=== PATIENT | female | born 1950 | race Caucasian/White ===

== ENCOUNTER 2019-05-31 02:03 | Inpatient (IN) | payer OTHER ==
[~2019-05-31] VITALS: Ht 154.9 cm; Wt 82.2 kg
[2019-05-31 02:08] VITALS: Ht 154.9 cm; Wt 82.2 kg
[2019-05-31 04:38] LABS: BASOPHIL % 0.7 % (0-2); PLATELET COUNT 169 x10^3mcL (130-400); RED CELL DISTRIBUTION WIDTH 13.6 % (11.5-14.5)
[2019-05-31 04:57] LABS: CALCIUM 8.5 mg/dL (8.5-10.1); CARBON DIOXIDE 25.7 mmol/L (21-32); CREATININE SERUM 1.4 mg/dL (0.6-1.0); POTASSIUM SERUM 4.8 mmol/L (3.5-5.1)
[2019-05-31 05:01] LABS: BILIRUBIN TOTAL 0.35 mg/dL (0.20-1.00); TOTAL PROTEIN, SERUM 6.6 g/dL (6.4-8.2)
[2019-05-31 05:02] LABS: ALBUMIN 2.8 g/dL (3.4-5.0)
[2019-05-31] MEDS ORDERED: ATENOLOL50 MG PO (06:10)
[2019-05-31] MEDS ORDERED: NAPROXEN500 MG PO (06:11)
[2019-05-31] MEDS ORDERED: COZAAR25 M1 PO (06:11)
[2019-05-31] MEDS ORDERED: MAGNESIUM CHLOR64 MG PO (06:11)
[2019-05-31] MEDS ORDERED: AMBIEN10 MG PO (06:12)
[2019-05-31] MEDS ORDERED: NEXIUM20 MG PO (06:12)
[2019-05-31] MEDS ORDERED: HUMALOG100 U/ML SC (06:12)
[2019-05-31] MEDS ORDERED: NEU300 PO (06:12)
[2019-05-31] MEDS ORDERED: METFORMIN HCL1000 MG PO (06:12)
[2019-05-31] MEDS ORDERED: ALPHAGAN P5 M1 OU (06:13)
[2019-05-31] MEDS ORDERED: LANTUS SOLOS100 U/M1 SQ (06:13)
[2019-05-31] MEDS ORDERED: BETIMOL5 M1 OU (06:13)
[2019-05-31] MEDS ORDERED: LATANOPROST2.5 ML OU (06:14)
[2019-05-31 09:03] VITALS: BP 201/71
[2019-05-31 09:56] VITALS: BP 201/71
[2019-05-31 11:17] LABS: IRON 36 ug/dL (50-170); TOTAL IRON BINDING CAPACITY 229 ug/dL (250-450)
[2019-05-31 12:27] VITALS: BP 157/53
[2019-05-31 12:28] LABS: RED BLOOD CELLS 3.03 M/mm3 (4.10-5.10)
[2019-05-31 17:06] VITALS: BP 174/62
[2019-05-31 18:41] LABS: microscopic required? YES; urine erythrocyte 1+ (NEGATIVE)
[2019-05-31 19:48] VITALS: BP 127/55
[2019-05-31 21:50] VITALS: BP 127/45
[2019-06-01 06:06] VITALS: BP 146/51
[2019-06-01 07:10] LABS: PLATELET COUNT 163 x10^3mcL (130-400)
[2019-06-01 07:50] LABS: CALCIUM 8.3 mg/dL (8.5-10.1); CARBON DIOXIDE 26.2 mmol/L (21-32); CREATININE SERUM 1.3 mg/dL (0.6-1.0); POTASSIUM SERUM 4.4 mmol/L (3.5-5.1)
[2019-06-01 08:53] VITALS: BP 154/53
[2019-06-01 16:48] VITALS: BP 152/47
[2019-06-01 20:12] VITALS: BP 151/52
[2019-06-01 22:07] VITALS: BP 156/60
[2019-06-02 05:57] VITALS: BP 147/54
[2019-06-02 06:35] LABS: BASOPHIL % 0.5 % (0-2); PLATELET COUNT 174 x10^3mcL (130-400); RED CELL DISTRIBUTION WIDTH 14.4 % (11.5-14.5)
[2019-06-02 06:50] LABS: CALCIUM 8.4 mg/dL (8.5-10.1); CREATININE SERUM 1.3 mg/dL (0.6-1.0); POTASSIUM SERUM 5.1 mmol/L (3.5-5.1)
[2019-06-02 11:14] VITALS: BP 152/45
[2019-06-02 12:15] VITALS: BP 152/63
[2019-06-02 17:06] VITALS: BP 133/75; BP 185/56
[2019-06-02 18:22] VITALS: BP 150/64
[2019-06-02 19:40] VITALS: BP 154/58
[2019-06-03 05:12] VITALS: BP 164/48
[2019-06-03 09:27] VITALS: BP 190/59
[2019-06-03 10:45] VITALS: BP 190/59
[2019-06-03 12:57] VITALS: BP 173/62
[2019-06-03 15:02] VITALS: BP 155/56
== END 2019-06-03 16:07 | disposition home health service (06) | DRG 193 ==
LOC: ED 02:03 → DU 06:58
PROVIDERS: Emergency Medicine; ADMIT Internal Medicine
DX: J10.00 Influenza due to other identified influenza virus with unspecified type of pneumonia (principal); J96.01 Acute respiratory failure with hypoxia; K56.7 Ileus, unspecified; N17.9 Acute kidney failure, unspecified; I10 Essential (primary) hypertension; D64.9 Anemia, unspecified; E11.9 Type 2 diabetes mellitus without complications; E66.9 Obesity, unspecified; Z68.32 Body mass index [BMI] 32.0-32.9, adult; Z79.4 Long term (current) use of insulin
CPT/HCPCS: 82962; 83880; 87046; 87046-59; 87804; 97116-GP; G0378; J0456; J0696; J1956; J3490; J7030; J7040; J7050; J7060; J7620

== ENCOUNTER 2019-08-18 14:49 | Inpatient (IN) | payer OTHER ==
[~2019-08-18] VITALS: Ht 152.4 cm; Wt 80.3 kg
[~2019-08-18 14:49] MED LIST: ALPHAGAN P5 M1 OU; AMBIEN10 MG PO; ATENOLOL50 MG PO; BETIMOL5 M1 OU; COZAAR25 M1 PO; HUMALOG100 U/ML SC; LANTUS SOLOS100 U/M1 SQ; LATANOPROST2.5 ML OU; MAGNESIUM CHLOR64 MG PO; METFORMIN HCL1000 MG PO; NAPROXEN500 MG PO; NEU300 PO; NEXIUM20 MG PO
[2019-08-18 14:55] VITALS: Ht 152.4 cm; Wt 80.3 kg
[2019-08-18 15:34] LABS: BASOPHIL % 0.5 % (0-2); PLATELET COUNT 224 x10^3mcL (130-400); RED CELL DISTRIBUTION WIDTH 13.9 % (11.5-14.5)
[2019-08-18 16:08] LABS: CARBON DIOXIDE 24.4 mmol/L (21-32)
[2019-08-18 16:09] LABS: ALBUMIN 3.2 g/dL (3.4-5.0); BILIRUBIN TOTAL 0.4 mg/dL (0.20-1.00); CALCIUM 9.2 mg/dL (8.5-10.1); CREATININE SERUM 1.9 mg/dL (0.6-1.0); TOTAL PROTEIN, SERUM 7.2 g/dL (6.4-8.2)
[2019-08-18] MEDS ORDERED: MYRBETRIQ50 MG PO (19:49)
[2019-08-18] MEDS ORDERED: ARICEPT10 MG PO (19:49)
[2019-08-18] MEDS ORDERED: PROTONIX40 MG/Pac1 PO (19:49)
[2019-08-18] MEDS ORDERED: AZOR 10-20 MG1 EACH PO (19:49)
[2019-08-18 20:53] VITALS: BP 167/74
[2019-08-18 22:55] VITALS: BP 159/69
[2019-08-19 05:55] VITALS: BP 139/55
[2019-08-19 07:06] LABS: BASOPHIL % 0.7 % (0-2); PLATELET COUNT 202 x10^3mcL (130-400); RED CELL DISTRIBUTION WIDTH 13.6 % (11.5-14.5)
[2019-08-19 08:15] VITALS: BP 98/55
[2019-08-19 08:31] LABS: T4(THYROXINE) 7.2 ug/dL (4.7-13.3)
[2019-08-19 09:41] LABS: ERYTHROCYTE SED RATE 54 mm/hr (0-30)
[2019-08-19 12:07] VITALS: BP 127/60
[2019-08-19 17:25] VITALS: BP 148/63
[2019-08-19 20:40] VITALS: BP 135/61
[2019-08-20 04:08] LABS: RAPID PLASMA REAGIN Non Reactive (Non Reactive)
[2019-08-20 05:56] VITALS: BP 144/69
[2019-08-20 08:46] VITALS: BP 136/68
[2019-08-20 09:10] LABS: RHEUMATOID ARTHRITIS FACTOR <10.0 IU/mL (0.0-13.9)
[2019-08-20 12:08] VITALS: BP 114/50
[2019-08-20 17:02] VITALS: BP 116/45
[2019-08-20 19:24] VITALS: BP 143/49
[2019-08-21 04:02] VITALS: BP 149/53
[2019-08-21 08:12] VITALS: BP 153/55
[2019-08-21 11:22] VITALS: BP 124/41
[2019-08-21 13:40] VITALS: BP 124/413
[2019-08-21] MEDS ORDERED: ASPIRIN ADULT L81 M3 PO (13:51)
== END 2019-08-21 14:54 | disposition home or self-care (01) | DRG 64 ==
LOC: ED 14:49 → DU 19:36
PROVIDERS: Emergency Medicine; ADMIT Internal Medicine
DX: I63.9 Cerebral infarction, unspecified (principal); G93.41 Metabolic encephalopathy; E11.65 Type 2 diabetes mellitus with hyperglycemia; E11.42 Type 2 diabetes mellitus with diabetic polyneuropathy; K21.9 Gastro-esophageal reflux disease without esophagitis; R29.703 NIHSS score 3; I10 Essential (primary) hypertension; M19.90 Unspecified osteoarthritis, unspecified site; F03.90 Unspecified dementia, unspecified severity, without behavioral disturbance, psychotic disturbance, mood disturbance, and anxiety; Z99.3 Dependence on wheelchair; Z79.4 Long term (current) use of insulin; Z68.32 Body mass index [BMI] 32.0-32.9, adult; Z79.84 Long term (current) use of oral hypoglycemic drugs; Z86.73 Personal history of transient ischemic attack (TIA), and cerebral infarction without residual deficits
CPT/HCPCS: 82962; 86431; 97116-GP; 97530-GP; C9113; G0378; J0360; J1815; J2060; Q0092